=== PATIENT | male | born 1980 ===

== ENCOUNTER 2020-06-10 14:01 | Emergency (ER) | payer OTHER ==
[~2020-06-10] VITALS: Ht 182.9 cm; Wt 99.8 kg
[2020-06-10] MEDS ORDERED: CLEOCIN HCL300 MG PO (15:22)
== END 2020-06-10 15:40 | disposition home or self-care (01) ==
LOC: ER 14:01
DX: L02.211 Cutaneous abscess of abdominal wall (principal)

== ENCOUNTER 2022-06-10 17:15 | Emergency (ER) | payer OTHER ==
[~2022-06-10] VITALS: Ht 185.4 cm; Wt 104.3 kg
[~2022-06-10 17:15] MED LIST: CLEOCIN HCL300 MG PO
== END 2022-06-10 22:41 | disposition home or self-care (01) ==
LOC: ER 17:15
DX: J06.9 Acute upper respiratory infection, unspecified (principal); Z20.822 Contact with and (suspected) exposure to COVID-19